=== PATIENT | male | born 1995 | race American Indian/Alaskan Native ===

== ENCOUNTER 2020-09-03 16:27 | Emergency (ER) | payer OTHER ==
--- NOTE | 2020-09-03 17:23 | EDM.PDOC ---
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 He denies any headache,fever or chill.s the nose bleeds are typically self limited. - Related Data Allergies Allergy/AdvReac Type Severity Reaction Status Date / Time No Known Allergies Allergy Verified 09/03/20 16:37 Home Meds: Home Meds NK [No Known Home Meds] 09/03/20 [History] Past Medical History - Past Health History Medical/Surgical History: Denies Medical/Surgical History Social & Family History - Tobacco Use Tobacco Use Status *Q: Former Tobacco User Used Tobacco, but Quit: Yes Month/Year Tobacco Last Used: 08/31/2020 - Alcohol Use Days Per Week of Alcohol Use: 7 Number of Drinks Per Day: 2 Total Drinks Per Week: 14 - Recreational Drug Use Recreational Drug Use: No ED ROS GENERAL - Review of Systems Review Of Systems: Comprehensive ROS is negative, except as noted in HPI. ED EXAM, GENERAL - Physical Exam Exam: See Below Exam Limited By: No Limitations General Appearance: Alert, WD/WN, No Apparent Distress, Anxious Ears: Normal External Exam Nose: Normal Inspection Respiratory/Chest: No Respiratory Distress Neurological: Oriented, CN II-XII Intact Course - Vital Signs Last Recorded V/S: Last Vital Signs Temp 98.1 F 09/03/20 16:27 Pulse 85 09/03/20 16:27 Resp 18 09/03/20 16:27 BP 157/107 H 09/03/20 16:27 Pulse Ox 99 09/03/20 16:27 - Orders/Labs/Meds Labs: Laboratory Tests 09/03/20 09/03/20 09/03/20 Range/Units 16:45 16:50 16:50 WBC 4.5 (3.2-10.1) x10-3/uL RBC 4.85 (3.90-5.90) x10(6)uL Hgb 15.2 (12.9-17.7) g/dL Hct 44.9 (38.3-50.1) % MCV 92.6 (80.8-98.7) fL MCH 31.4 (27.0-33.3) pg MCHC 33.9 (28.7-35.3) g/dL RDW 14.1 (12.4-15.0) % Plt Count 231 (117-477) x10(3)uL MPV 7.7 (6.7-11.0) fL Neut % (Auto) 75.5 H (40.3-71.8) % Lymph % (Auto) 13.7 L (15.8-45.3) % [place] % (Auto) 9.8 (5.5-15.2) % Eos % (Auto) 0.6 (0.1-6.8) % Baso % (Auto) 0.4 (0.3-3.8) % Neut # (Auto) 3.4 (1.7-6.9) x10-3/uL Lymph # (Auto) 0.6 (0.5-4.5) x10-3/uL [place] # (Auto) 0.4 (0.0-1.2) x10-3/uL Eos # (Auto) 0.0 (0.0-0.6) x10-3/uL Baso # (Auto) 0.0 (0.0-0.3) x10-3/uL Sodium 136 (135-145) mmol/L Potassium 3.6 (3.5-5.3) mmol/L Chloride 96 L (100-110) mmol/L Carbon Dioxide 28 (21-32) mmol/L BUN 6 L (7-18) mg/dL Creatinine 0.9 (0.70-1.30) mg/dL Est Cr Clr Drug Dosing 120.89 mL/min Estimated GFR (MDRD) > 60 (>60) BUN/Creatinine Ratio 6.7 L (9-20) Glucose 115 (80-116) mg/dL Calcium 9.1 (8.6-10.2) mg/dL Total Bilirubin 1.1 (0.1-1.3) mg/dL AST 65 H (5-25) IU/L ALT 94 H (12-36) U/L Alkaline Phosphatase 91 (56-112) IU/L Total Protein 8.5 H (6.0-8.0) g/dL Albumin 4.8 (3.5-5.2) g/dL Globulin 3.7 g/dL Albumin/Globulin Ratio 1.3 Urine Opiates Screen Negative (NEGATIVE) Ur Oxycodone Screen Negative (NEGATIVE) Ur Propoxyphene Screen Negative (NEGATIVE) Ur Barbituates Screen Negative (NEGATIVE) Ur Tricyclics Screen Negative (NEGATIVE) Ur Phencyclidine Scrn Negative (NEGATIVE) Ur Amphetamine Screen Negative (NEGATIVE) Urine MDMA Screen Negative (NEGATIVE) U Benzodiazepines Scrn Negative (NEGATIVE) U Cocaine Metab Screen Negative (NEGATIVE) U Marijuana (THC) Screen Positive H (NEGATIVE) Ethyl Alcohol (<0.03) % 09/03/20 Range/Units 16:50 WBC (3.2-10.1) x10-3/uL RBC (3.90-5.90) x10(6)uL Hgb (12.9-17.7) g/dL Hct (38.3-50.1) % MCV (80.8-98.7) fL MCH (27.0-33.3) pg MCHC (28.7-35.3) g/dL RDW (12.4-15.0) % Plt Count (117-477) x10(3)uL MPV (6.7-11.0) fL Neut % (Auto) (40.3-71.8) % Lymph % (Auto) (15.8-45.3) % [place] % (Auto) (5.5-15.2) % Eos % (Auto) (0.1-6.8) % Baso % (Auto) (0.3-3.8) % Neut # (Auto) (1.7-6.9) x10-3/uL Lymph # (Auto) (0.5-4.5) x10-3/uL [place] # (Auto) (0.0-1.2) x10-3/uL Eos # (Auto) (0.0-0.6) x10-3/uL Baso # (Auto) (0.0-0.3) x10-3/uL Sodium (135-145) mmol/L Potassium (3.5-5.3) mmol/L Chloride (100-110) mmol/L Carbon Dioxide (21-32) mmol/L BUN (7-18) mg/dL Creatinine (0.70-1.30) mg/dL Est Cr Clr Drug Dosing mL/min Estimated GFR (MDRD) (>60) BUN/Creatinine Ratio (9-20) Glucose (80-116) mg/dL Calcium (8.6-10.2) mg/dL Total Bilirubin (0.1-1.3) mg/dL AST (5-25) IU/L ALT (12-36) U/L Alkaline Phosphatase (56-112) IU/L Total Protein (6.0-8.0) g/dL Albumin (3.5-5.2) g/dL Globulin g/dL Albumin/Globulin Ratio Urine Opiates Screen (NEGATIVE) Ur Oxycodone Screen (NEGATIVE) Ur Propoxyphene Screen (NEGATIVE) Ur Barbituates Screen (NEGATIVE) Ur Tricyclics Screen (NEGATIVE) Ur Phencyclidine Scrn (NEGATIVE) Ur Amphetamine Screen (NEGATIVE) Urine MDMA Screen (NEGATIVE) U Benzodiazepines Scrn (NEGATIVE) U Cocaine Metab Screen (NEGATIVE) U Marijuana (THC) Screen (NEGATIVE) Ethyl Alcohol < 0.03 (<0.03) % Departure - Departure Time of Disposition: 17:22 Disposition: Home, Self-Care 01 Condition: Good Clinical Impression: Alcohol withdrawal - Discharge Information Referrals: PCP,None [Primary Care Provider] - Sepsis Event Note (ED) - Evaluation Sepsis Screening Result: No Definite Risk - Focused Exam Vital Signs: Vital Signs Temp Pulse Resp BP Pulse Ox 09/03/20 16:27 98.1 F 85 18 157/107 H 99 - Problem List & Annotations (1) Alcohol withdrawal SNOMED Code(s): 190940401 Code(s): F10.239 - ALCOHOL DEPENDENCE WITH WITHDRAWAL, UNSPECIFIED Status: Acute Current Visit: Yes Qualifiers: Complication of substance-induced condition: uncomplicated Qualified Code(s): F10.230 - Alcohol dependence with withdrawal, uncomplicated - Problem List Review Problem List Initiated/Reviewed/Updated: Yes - Assessment/Plan Plan: Discussed alcohol withdrawal. Epistaxis. Recommend humidifier. Also alcohol cessation.
== END 2020-09-03 17:30 | disposition home or self-care (01) ==
LOC: FB.ED 16:27
DX: F10.239 Alcohol dependence with withdrawal, unspecified (principal); R04.0 Epistaxis; F41.9 Anxiety disorder, unspecified; Z87.891 Personal history of nicotine dependence; Y90.1 Blood alcohol level of 20-39 mg/100 ml
CPT/HCPCS: 36415; 80053; 80305-QW; 80307; 85025; 99284

== ENCOUNTER 2020-09-04 00:58 | Emergency (ER) | payer OTHER ==
[2020-09-04] MEDS: Sodium Chloride 0.9% 1,000 ML IV SCH (01:30)
[2020-09-04] MEDS: LORazepam 2 MG/ML SDV IVPUSH ONE (01:35)
--- NOTE | 2020-09-04 01:49 | EDM.PDOC ---
ED HPI GENERAL MEDICAL PROBLEM - General Chief Complaint: ENT Problem Stated Complaint: NOSE BLEED; ANXIETY Time Seen by Provider: 09/04/20 01:47 Source of Information: Reports: Patient History Limitations: Reports: No Limitations - History of Present Illness INITIAL COMMENTS - FREE TEXT/NARRATIVE: Nose bleeding x 1hr. Mr Hernandez was here last night. Left nostril bleeding without any improvement - Related Data Allergies Allergy/AdvReac Type Severity Reaction Status Date / Time No Known Allergies Allergy Verified 09/03/20 16:37 Home Meds: Home Meds NK [No Known Home Meds] 09/03/20 [History] Past Medical History - Past Health History Medical/Surgical History: Denies Medical/Surgical History ED ROS ENT - Review of Systems Review Of Systems: Comprehensive ROS is negative, except as noted in HPI. ED EXAM, ENT - Physical Exam Exam: See Below Text/Narrative:: Active left nostril bleeding Exam Limited By: No Limitations General Appearance: Alert, WD/WN Course - Vital Signs Last Recorded V/S: Last Vital Signs Temp Pulse 93 09/04/20 01:20 Resp 18 09/04/20 01:20 BP 152/113 H 09/04/20 01:20 Pulse Ox 99 09/04/20 01:20 - Orders/Labs/Meds Orders: Active Orders 24 hr Category Date Time Status Sodium Chloride 0.9% [Normal Saline] 1,000 ml Med 09/04/20 01:30 Active IV ASDIRECTED Medication Orders Sodium Chloride (Normal Saline) 1,000 mls @ 999 mls/hr IV ASDIRECTED AIRAM Last Admin: 09/04/20 01:30 Dose: 999 mls/hr Documented by: AMBERLY Meds: Medications Generic Name Dose Route Start Last Admin Trade Name Freq PRN Reason Stop Dose Admin Sodium Chloride 1,000 mls @ 999 mls/hr 09/04/20 01:30 09/04/20 01:30 Normal Saline IV 999 mls/hr ASDIRECTED AIRAM Administration Discontinued Medications Generic Name Dose Route Start Last Admin Trade Name Freq PRN Reason Stop Dose Admin Lorazepam 0.5 mg 09/04/20 01:24 09/04/20 01:35 Ativan IVPUSH 09/04/20 01:25 0.5 mg ONETIME ONE Administration Departure - Departure Time of Disposition: 01:48 Disposition: DC/Tfer to Acute Hospital 02 Condition: Good Clinical Impression: Epistaxis, Anxiety - Discharge Information Referrals: PCP,None [Primary Care Provider] - Sepsis Event Note (ED) - Focused Exam Vital Signs: Vital Signs Pulse Resp BP Pulse Ox 09/04/20 01:20 93 18 152/113 H 99 - Problem List & Annotations (1) Anxiety SNOMED Code(s): 65233935 Code(s): F41.9 - ANXIETY DISORDER, UNSPECIFIED Status: Acute Current Visit: Yes (2) Epistaxis SNOMED Code(s): 823913568 Code(s): R04.0 - EPISTAXIS Status: Acute Current Visit: Yes - Problem List Review Problem List Initiated/Reviewed/Updated: Yes - My Orders Last 24 Hours: My Active Orders 09/04/20 01:30 Sodium Chloride 0.9% [Normal Saline] 1,000 ml IV ASDIRECTED - Assessment/Plan Last 24 Hours: My Active Orders 09/04/20 01:30 Sodium Chloride 0.9% [Normal Saline] 1,000 ml IV ASDIRECTED Plan: Attempted rhino rocket x2. No success. Will get IV access,transfer to [facility] ED.
== END 2020-09-04 02:15 ==
LOC: FB.ED 00:58
DX: R04.0 Epistaxis (principal); F41.9 Anxiety disorder, unspecified
CPT/HCPCS: 96374; 99284-25; J2060; J7030

== ENCOUNTER 2020-09-04 21:32 | Emergency (ER) | payer OTHER ==
[2020-09-04] MEDS ORDERED: LORazepam 2 MG/ML SDV IM ONE ×2 (22:04→22:32)
--- NOTE | 2020-09-04 22:11 | EDM.PDOC ---
ED HPI GENERAL MEDICAL PROBLEM - General Stated Complaint: BLOODY NOSE Time Seen by Provider: 09/04/20 21:35 Source of Information: Reports: Patient History Limitations: Reports: No Limitations - History of Present Illness INITIAL COMMENTS - FREE TEXT/NARRATIVE: c/o nosebleed pt is seen now for the 3rd time in our ED in the past 24h for epistaxis no previous h/o epistaxis rhinorockets x 2 were placed without success here and pt sent to [facility] ED in the early AM I spoke with the grocery department manager at [facility] who reports that pt saw ED physician, there was no active bleeding on L side, Afrin spra x 2 used, as pt was preparing to d/c, he had copious bleeding from the L side and Ativan and droperidol given prior to placement of yet a 3rd rhinorocket which currently is in place Dr Olmstead from ENT saw pt after rhinorocket was in place and requested an antbx and to see pt in his office in 3d pt states he got home at 10a today, ate several meals and felt fine, this PM he began to have bleeding again he did test positive for COVID today when at [facility] plts were 231 here yesterday at 4:50p, pt did have inc'd LFTs c/w alc use, had inc'd TP c/w COVID hgb 15.2 at 4:50p here yesterday, however was 12 today at 6a at [facility] - Related Data Allergies Allergy/AdvReac Type Severity Reaction Status Date / Time No Known Allergies Allergy Verified 09/03/20 16:37 Home Meds: Home Meds NK [No Known Home Meds] 09/03/20 [History] Past Medical History - Past Health History Medical/Surgical History: Denies Medical/Surgical History HEENT History: Reports: Epistaxis, Other (See Below) Other HEENT History: Serious episode of epistaxis. Musculoskeletal History: Reports: Other (See Below) Other Musculoskeletal History: History of right hand fracture. ED ROS ENT - Review of Systems Review Of Systems: See Below Constitutional: Reports: No Symptoms HEENT: Reports: Nosebleed Respiratory: Reports: No Symptoms Endocrine: Reports: No Symptoms GI/Abdominal: Reports: No Symptoms : Reports: No Symptoms Musculoskeletal: Reports: No Symptoms Skin: Reports: No Symptoms Neurological: Reports: No Symptoms Psychiatric: Reports: No Symptoms Hematologic/Lymphatic: Reports: No Symptoms Immunologic: Reports: No Symptoms ED EXAM, ENT - Physical Exam Exam: See Below Exam Limited By: No Limitations General Appearance: Alert, WD/WN, Anxious Nose: Other (rhinorocket in L nares in proper position with tubing taped to L cheek, there is no office and pressure seems appropriate, on the R the anterior chamber is patent, there is RBC and mucus bubbling at the posterior aspect of the turbinates, the mucosa appears intact in the anterior chamber, there are no clots in anterior chamber. Pt would not hold still, kept moving, kept asking the examiner to wait, never did open his mouth fully altho he did spit up several ml's of bright RBD) Mouth/Throat: Normal Inspection Head: Atraumatic, Normocephalic Neck: Normal Inspection, Supple, Non-Tender, Full Range of Motion Respiratory/Chest: Lungs Clear Cardiovascular: Regular Rate, Rhythm GI/Abdominal: Soft, Non-Tender Extremities: Normal Inspection, Normal Range of Motion, Non-Tender, No Pedal Edema, Normal Capillary Refill Neurological: Alert, Oriented, CN II-XII Intact, No Motor/Sensory Deficits Psychiatric: Anxious Skin: Warm, Dry, Intact, Normal Color, No Rash Lymphatic: No Adenopathy Course - Orders/Labs/Meds Labs: Laboratory Tests 09/04/20 09/04/20 Range/Units 22:00 22:00 WBC 6.5 (3.2-10.1) x10-3/uL RBC 3.36 L (3.90-5.90) x10(6)uL Hgb 10.5 L D (12.9-17.7) g/dL Hct 31.4 L D (38.3-50.1) % MCV 93.4 (80.8-98.7) fL MCH 31.4 (27.0-33.3) pg MCHC 33.6 (28.7-35.3) g/dL RDW 14.2 (12.4-15.0) % Plt Count 241 (117-477) x10(3)uL MPV 7.6 (6.7-11.0) fL Neut % (Auto) 69.5 (40.3-71.8) % Lymph % (Auto) 18.2 (15.8-45.3) % [place] % (Auto) 10.8 (5.5-15.2) % Eos % (Auto) 1.0 (0.1-6.8) % Baso % (Auto) 0.5 (0.3-3.8) % Neut # (Auto) 4.5 (1.7-6.9) x10-3/uL Lymph # (Auto) 1.2 (0.5-4.5) x10-3/uL [place] # (Auto) 0.7 (0.0-1.2) x10-3/uL Eos # (Auto) 0.1 (0.0-0.6) x10-3/uL Baso # (Auto) 0.0 (0.0-0.3) x10-3/uL PT 10.2 (9.0-11.1) sec INR 0.94 L (1.00-1.24) Meds: Medications Discontinued Medications Generic Name Dose Route Start Last Admin Trade Name Freq PRN Reason Stop Dose Admin Lorazepam 2 mg 09/04/20 22:04 09/04/20 22:14 Ativan IM 09/04/20 22:05 2 mg ONETIME ONE Administration Lorazepam 2 mg 09/04/20 22:32 09/04/20 22:42 Ativan IM 09/04/20 22:33 2 mg ONETIME ONE Administration - Re-Assessments/Exams Free Text/Narrative Re-Assessment/Exam: 09/04/20 23:39 pt was much calmer after Ativan 2 mg IM x 2, tolerated several sprays of metazolone and then a 7.5 ml Rhinorocket inserted on the right without difficulty, balloon inflated and taped in place, pt was quite eager to leave at that juncture no sedation and did not fall asleep after the Ativan, walked to the bathroom without difficulty Departure - Departure Time of Disposition: 23:34 Disposition: Home, Self-Care 01 Condition: Good Clinical Impression: Acute posterior epistaxis - Discharge Information *PRESCRIPTION DRUG MONITORING PROGRAM REVIEWED*: No *COPY OF PRESCRIPTION DRUG MONITORING REPORT IN PATIENT SANKET: No Instructions: Nosebleed, Adult Referrals: PCP,None [Primary Care Provider] - Additional Instructions: The source of the bleeding is most likely from the back of the nose on the left side, now crossing over to the right side. The COVID virus can alter the bloods ability to clot and may have been the trigger. However, your platelets are normal, as are your clotting proteins. Your hemoglobin is 10.5 and is unchanged in the past 12 hours. You will find that is easier to sleep if you are propped up in bed and are in recliner at [address] Olmstead in 3 days. Return to the ED if you are feeling worse. If you have additional trickling of blood, be sure to sit with your forward. Put gentle pressure on the fleshy part of the nose to close of any potential space.
== END 2020-09-04 23:50 | disposition home or self-care (01) ==
LOC: FB.ED 21:32
DX: R04.0 Epistaxis (principal)
CPT/HCPCS: 30903; 36415; 85025; 85610; 96372; 99283-25; J2060

== ENCOUNTER 2020-09-06 00:22 | Emergency (ER) | payer OTHER ==
[2020-09-06] MEDS ORDERED: LORazepam 2 MG/ML SDV ONE (00:47)
[2020-09-06] MEDS ORDERED: LORazepam 2 MG/ML SDV IM STA (00:53)
[2020-09-06] MEDS ORDERED: EPINEPHrine 1 MG/ML SDV IM ONE ×2 (00:54→01:25)
[2020-09-06] MEDS ORDERED: Tranexamic Acid 1,000 MG in Sodium Chloride 0.9% 50 ML IV ONE (01:08)
--- NOTE | 2020-09-06 01:42 | EDM.PDOC ---
ED HPI GENERAL MEDICAL PROBLEM - General Stated Complaint: BLOODY NOSE Time Seen by Provider: 09/06/20 00:40 Source of Information: Reports: Patient History Limitations: Reports: No Limitations - History of Present Illness INITIAL COMMENTS - FREE TEXT/NARRATIVE: Patient presented to the ED because of bilateral nasal bleed, worse on the left than on the right. There was a nasal pack in both nose. He is also Covid positive. - Related Data Allergies Allergy/AdvReac Type Severity Reaction Status Date / Time No Known Allergies Allergy Verified 09/06/20 00:42 Home Meds: Home Meds NK [No Known Home Meds] 09/03/20 [History] Past Medical History - Past Health History Medical/Surgical History: Denies Medical/Surgical History HEENT History: Reports: Epistaxis, Other (See Below) Other HEENT History: Serious episode of epistaxis. Musculoskeletal History: Reports: Other (See Below) Other Musculoskeletal History: History of right hand fracture. ED ROS ENT - Review of Systems Review Of Systems: See Below Constitutional: Reports: No Symptoms HEENT: Reports: Nosebleed Respiratory: Reports: No Symptoms Cardiovascular: Reports: No Symptoms Endocrine: Reports: No Symptoms GI/Abdominal: Reports: No Symptoms : Reports: No Symptoms Musculoskeletal: Reports: No Symptoms Skin: Reports: No Symptoms ED EXAM, ENT - Physical Exam Exam: See Below Exam Limited By: No Limitations General Appearance: Alert, No Apparent Distress Ears: Normal External Exam, Normal Canal, Hearing Grossly Normal Nose: Normal Inspection, Normal Mucousa Mouth/Throat: Normal Inspection, Normal Gums Head: Atraumatic, Normocephalic Respiratory/Chest: No Respiratory Distress, Lungs Clear, Normal Breath Sounds Cardiovascular: Normal Peripheral Pulses, Regular Rate, Rhythm, No Edema, No Gallop, No JVD, No Murmur GI/Abdominal: Normal Bowel Sounds, Soft, Non-Tender, No Organomegaly, No Distention, No Abnormal Bruit Back: Normal Inspection, Full Range of Motion Extremities: Normal Inspection, Normal Range of Motion Course - Vital Signs Text/Narrative:: nasal pressure was applied and TXA 1 gm IV was given which stopped the bleeding Last Recorded V/S: Last Vital Signs Temp 36.7 C 09/06/20 02:35 Pulse 90 09/06/20 02:35 Resp 18 09/06/20 02:35 BP 130/84 09/06/20 02:35 Pulse Ox 100 09/06/20 02:35 - Orders/Labs/Meds Meds: Medications Discontinued Medications Generic Name Dose Route Start Last Admin Trade Name Bhavani SAWYER Reason Stop Dose Admin Epinephrine HCl 0.5 mg 09/06/20 00:54 09/06/20 02:11 Adrenalin IM 09/06/20 00:55 Not Given ONETIME ONE Epinephrine HCl 0.5 mg 09/06/20 01:25 09/06/20 02:12 Adrenalin IM 09/06/20 01:26 Not Given ONETIME ONE Tranexamic Acid 1,000 mg/ 60 mls @ 200 mls/hr 09/06/20 01:08 09/06/20 02:00 Sodium Chloride IV 09/06/20 01:25 200 mls/hr ONETIME ONE Administration Lorazepam Confirm 09/06/20 00:47 09/06/20 02:10 Ativan Administered 09/06/20 00:48 Not Given Dose 2 mg .ROUTE .STK-MED ONE Lorazepam 1 mg 09/06/20 00:53 09/06/20 01:10 Ativan IM 09/06/20 00:54 1 mg NOW STA Administration Tranexamic Acid 1,000 mg 09/06/20 00:54 09/06/20 02:13 Cyklokapron TOP 09/06/20 00:55 Not Given NOW STA Tranexamic Acid 500 mg 09/06/20 01:24 09/06/20 02:13 Cyklokapron TOP 09/06/20 01:40 Not Given ONETIME ONE Departure - Departure Time of Disposition: 02:30 Disposition: Home, Self-Care 01 Condition: Good Clinical Impression: Epistaxis - Discharge Information Instructions: Nosebleed, Adult Referrals: PCP,None [Primary Care Provider] - Forms: ED Department Discharge Additional Instructions: Please read discharge instructions on epistaxis/nose bleed Apply pressure by pinching your nose for 30 minutes if it bleeds again Keep your appointment to see the ENT this Do not take aspirin, ibuprofen, aleve for 1 week If you feel like you want to sneeze, open your mouth wide so the nasal pack will not be expelled from your nose Sepsis Event Note (ED) - Focused Exam Vital Signs: Vital Signs Temp Pulse Resp BP Pulse Ox 09/06/20 02:35 36.7 C 90 18 130/84 100 09/06/20 02:00 36.7 C 94 18 138/82 100 09/06/20 00:35 36.8 C 101 H 18 141/86 H 99
== END 2020-09-06 02:40 | disposition home or self-care (01) ==
LOC: FB.ED 00:22
DX: R04.0 Epistaxis (principal)
CPT/HCPCS: 96365; 96372; 99283-25; J2060